=== PATIENT | female | born 1995 | race Caucasian/White ===

== ENCOUNTER 2018-08-21 00:30 | Emergency (ER) | payer OTHER ==
--- NOTE | 2018-08-21 00:44 | ER Report ---
History and Physical Time Seen By MD: 00:44 Hx. of Stated Complaint: PATIENT STATES SHE ATE A MARIJUANA EDIBLE GUMMY AROUND 2129, PATIENT STATE SHE FELT FINE AT FIRST BUT THEN STARTED FEELING THEN STARTED TO HAVE PAIN ALL OVER, WEAK FEELING, A "BURNING IN SPIN", FEELING DIZZY AND NAUSEATED. HPI/ROS CHIEF COMPLAINT: Not feeling well, possible bad marijuana edible consumption HISTORY OF PRESENT ILLNESS: This is a 22-year-old female. She is not feeling well after eating a marijuana edible. This was a gummy, eaten around 0 hours. She states she ate one. No other edible consumption. Denies any other substance abuse such as alcohol, tobacco, or other drugs. She is feeling dizzy. She is feeling nauseous. Also feeling a burning sensation throughout her body. Diffuse weakness. She has used marijuana in the past without any problems. Prior to this she was feeling fine and in her normal state of health without any problems. She feels a little short of breath. Denies chest pain. No abdominal pain. Normal bowel and bladder function today. Allergies: Coded Allergies: cat dander (Verified Allergy, Intermediate, CONGESTION/ITCHY, 08/21/18) dog dander (Verified Allergy, Intermediate, TICHY/CONGESTION, 08/21/18) Uncoded Allergies: HAY (Allergy, Intermediate, CONGESTION/ITCHY, 08/21/18) Home Meds No Active Prescriptions or Reported Meds Reviewed Nurses Notes: Yes Hx Substance Use Disorder: No Hx Alcohol Use: No Constitutional Vital Sign - Last 24 Hours 08/21/18 08/21/18 08/21/18 08/21/18 00:37 00:45 01:00 01:05 Temp 97.3 Pulse 125 107 92 82 Resp 24 17 19 15 B/P (MAP) 132/83 117/65 (82) Pulse Ox 98 96 96 96 O2 Delivery Room Air 08/21/18 08/21/18 08/21/18 08/21/18 01:20 01:30 01:35 01:50 Pulse 65 90 86 Resp 13 9 14 B/P (MAP) 120/74 (89) Pulse Ox 98 98 99 08/21/18 08/21/18 08/21/18 08/21/18 01:59 02:04 02:09 02:24 Pulse 61 53 51 57 Resp 14 13 13 12 Pulse Ox 97 98 98 97 08/21/18 08/21/18 08/21/18 08/21/18 02:30 02:39 03:00 03:05 Pulse 60 53 Resp 9 12 B/P (MAP) 112/73 (86) 107/72 (84) Pulse Ox 97 97 08/21/18 08/21/18 08/21/18 08/21/18 03:20 03:30 03:35 04:05 Pulse 62 73 ??? Resp 10 14 B/P (MAP) 120/71 (87) 111/62 (78) Pulse Ox 96 97 Physical Exam General Appearance: She is very groggy but alert and able answer questions. No acute distress. Eyes: Pupils are equal, round. No pallor, injection or icterus. Reactive to light. Extraocular movements intact. ENT: Mucous membranes are moist. Normal oral mucosa. Posterior oropharynx is normal. Neck: Supple and non tender. No lymphadenopathy. Respiratory: Lungs are clear to auscultation. Cardiovascular: Regular rate and rhythm. No murmurs, gallops or rubs. Normal capillary refill. No edema. Gastrointestinal: Abdomen is soft and non tender. Nondistended. Normal active bowel sounds. No costovertebral angle tenderness with percussion. Neurological: Alert and oriented x3. Cranial nerves II through XII show no acute deficits on my exam. No focal neurologic deficits in the extremities. Skin: Warm and dry. Musculoskeletal: Extremities are nontender. No tenderness in palpation of the cervical, thoracic and lumbar spine. DIFFERENTIAL DIAGNOSIS: After history and physical exam, differential diagnosis was considered for altered mental status, dizziness and weakness, likely due to consumption of the marijuana that he knows what else was in that. We'll look for other potential causes of this such as medical or metabolic as well. Medical Decision Making Data Points Result Diagram: 08/21/18 0053 08/21/18 0053 Laboratory Hematology Test 08/21/18 00:53 08/21/18 01:38 Red Blood Count 4.93 M/uL (4.17-5.56) Mean Corpuscular Volume 88.3 fL (80.0-96.0) Mean Corpuscular Hemoglobin 30.4 pg (26.0-33.0) Mean Corpuscular Hemoglobin Concent 34.4 g/dL (32.0-36.0) Red Cell Distribution Width 12.6 % (11.5-14.5) Mean Platelet Volume 8.5 fL (7.2-11.1) Neutrophils (%) (Auto) 42.1 % (39.4-72.5) Lymphocytes (%) (Auto) 50.2 % (17.6-49.6) Monocytes (%) (Auto) 5.4 % (4.1-12.4) Eosinophils (%) (Auto) 1.8 % (0.4-6.7) Basophils (%) (Auto) 0.5 % (0.3-1.4) Nucleated RBC Relative Count (auto) 0.0 /100WBC Neutrophils # (Auto) 4.0 K/uL (2.0-7.4) Lymphocytes # (Auto) 4.8 K/uL (1.3-3.6) Monocytes # (Auto) 0.5 K/uL (0.3-1.0) Eosinophils # (Auto) 0.2 K/uL (0.0-0.5) Basophils # (Auto) 0.0 K/uL (0.0-0.1) Nucleated RBC Absolute Count (auto) 0.00 K/uL Sodium Level 141 mmol/L (137-145) Potassium Level 3.2 mmol/L (3.5-5.0) Chloride Level 107 mmol/L (98-107) Carbon Dioxide Level 24 mmol/L (22-31) Blood Urea Nitrogen 16 mg/dl (7-18) Creatinine 0.90 mg/dl (0.52-1.04) Glomerular Filtration Rate Calc > 60.0 Random Glucose 121 mg/dl (75-110) Calcium Level 9.8 mg/dl (8.4-10.2) Total Bilirubin 0.3 mg/dl (0.2-1.3) Aspartate Amino Transf (AST/SGOT) 28 U/L (0-35) Alanine Aminotransferase (ALT/SGPT) 31 U/L (0-56) Alkaline Phosphatase 38 U/L (0-126) Troponin I < 0.012 ng/ml Total Protein 7.5 g/dl (6.3-8.2) Albumin 4.2 g/dl (3.5-5.0) Salicylates Level < 10 mg/L Salicylate Last Dose Date unk Acetaminophen Level < 10 ug/ml Serum Alcohol < 10 mg/dl Urine Color Yellow Urine Clarity Slightly-cloudy Urine pH 5.0 pH (4.8-9.5) Urine Specific [place] 1.014 Urine Protein Negative mg/dL (NEGATIVE) Urine Glucose (UA) Negative mg/dL (NEGATIVE) Urine Ketones Negative mg/dL (NEGATIVE) Urine Blood Negative (NEGATIVE) Urine Nitrite Negative (NEGATIVE) Urine Bilirubin Negative (NEGATIVE) Urine Urobilinogen Negative mg/dL (0.2-1.9) Urine Leukocyte Esterase Moderate (NEGATIVE) Urine RBC 1 /HPF (0-2/HPF) Urine WBC 9 /HPF (0-5/HPF) Urine Squamous Epithelial Cells Many /LPF (</=FEW) Urine Bacteria Few /HPF (NONE-FEW) Urine Mucus Few /HPF (NONE-FEW) Urine Opiates Screen Negative Urine Barbiturates Screen Negative Ur Tricyclic Antidepressants Screen Negative Urine Phencyclidine Screen Negative Urine Amphetamines Screen Negative Urine Benzodiazepines Screen Negative Urine Cocaine Screen Negative Urine Cannabinoids Screen Positive Chemistry Test 08/21/18 00:53 08/21/18 01:38 White Blood Count 9.5 k/uL (4.5-11.0) Red Blood Count 4.93 M/uL (4.17-5.56) Hemoglobin 15.0 g/dL (12.0-16.0) Hematocrit 43.6 % (34.0-47.0) Mean Corpuscular Volume 88.3 fL (80.0-96.0) Mean Corpuscular Hemoglobin 30.4 pg (26.0-33.0) Mean Corpuscular Hemoglobin Concent 34.4 g/dL (32.0-36.0) Red Cell Distribution Width 12.6 % (11.5-14.5) Platelet Count 331 K/uL (150-450) Mean Platelet Volume 8.5 fL (7.2-11.1) Neutrophils (%) (Auto) 42.1 % (39.4-72.5) Lymphocytes (%) (Auto) 50.2 % (17.6-49.6) Monocytes (%) (Auto) 5.4 % (4.1-12.4) Eosinophils (%) (Auto) 1.8 % (0.4-6.7) Basophils (%) (Auto) 0.5 % (0.3-1.4) Nucleated RBC Relative Count (auto) 0.0 /100WBC Neutrophils # (Auto) 4.0 K/uL (2.0-7.4) Lymphocytes # (Auto) 4.8 K/uL (1.3-3.6) Monocytes # (Auto) 0.5 K/uL (0.3-1.0) Eosinophils # (Auto) 0.2 K/uL (0.0-0.5) Basophils # (Auto) 0.0 K/uL (0.0-0.1) Nucleated RBC Absolute Count (auto) 0.00 K/uL Glomerular Filtration Rate Calc > 60.0 Calcium Level 9.8 mg/dl (8.4-10.2) Total Bilirubin 0.3 mg/dl (0.2-1.3) Aspartate Amino Transf (AST/SGOT) 28 U/L (0-35) Alanine Aminotransferase (ALT/SGPT) 31 U/L (0-56) Alkaline Phosphatase 38 U/L (0-126) Troponin I < 0.012 ng/ml Total Protein 7.5 g/dl (6.3-8.2) Albumin 4.2 g/dl (3.5-5.0) Salicylates Level < 10 mg/L Salicylate Last Dose Date unk Acetaminophen Level < 10 ug/ml Serum Alcohol < 10 mg/dl Urine Color Yellow Urine Clarity Slightly-cloudy Urine pH 5.0 pH (4.8-9.5) Urine Specific [place] 1.014 Urine Protein Negative mg/dL (NEGATIVE) Urine Glucose (UA) Negative mg/dL (NEGATIVE) Urine Ketones Negative mg/dL (NEGATIVE) Urine Blood Negative (NEGATIVE) Urine Nitrite Negative (NEGATIVE) Urine Bilirubin Negative (NEGATIVE) Urine Urobilinogen Negative mg/dL (0.2-1.9) Urine Leukocyte Esterase Moderate (NEGATIVE) Urine RBC 1 /HPF (0-2/HPF) Urine WBC 9 /HPF (0-5/HPF) Urine Squamous Epithelial Cells Many /LPF (</=FEW) Urine Bacteria Few /HPF (NONE-FEW) Urine Mucus Few /HPF (NONE-FEW) Urine Opiates Screen Negative Urine Barbiturates Screen Negative Ur Tricyclic Antidepressants Screen Negative Urine Phencyclidine Screen Negative Urine Amphetamines Screen Negative Urine Benzodiazepines Screen Negative Urine Cocaine Screen Negative Urine Cannabinoids Screen Positive Toxicology Test 08/21/18 00:53 08/21/18 01:38 Salicylates Level < 10 mg/L Salicylate Last Dose Date unk Acetaminophen Level < 10 ug/ml Serum Alcohol < 10 mg/dl Urine Opiates Screen Negative Urine Barbiturates Screen Negative Ur Tricyclic Antidepressants Screen Negative Urine Phencyclidine Screen Negative Urine Amphetamines Screen Negative Urine Benzodiazepines Screen Negative Urine Cocaine Screen Negative Urine Cannabinoids Screen Positive Urinalysis Test 08/21/18 01:38 Urine Color Yellow Urine Clarity Slightly-cloudy Urine pH 5.0 pH (4.8-9.5) Urine Specific [place] 1.014 Urine Protein Negative mg/dL (NEGATIVE) Urine Glucose (UA) Negative mg/dL (NEGATIVE) Urine Ketones Negative mg/dL (NEGATIVE) Urine Blood Negative (NEGATIVE) Urine Nitrite Negative (NEGATIVE) Urine Bilirubin Negative (NEGATIVE) Urine Urobilinogen Negative mg/dL (0.2-1.9) Urine Leukocyte Esterase Moderate (NEGATIVE) Urine RBC 1 /HPF (0-2/HPF) Urine WBC 9 /HPF (0-5/HPF) Urine Squamous Epithelial Cells Many /LPF (</=FEW) Urine Bacteria Few /HPF (NONE-FEW) Urine Mucus Few /HPF (NONE-FEW) EKG/Imaging EKG Interpretation 12 lead EKG: Rhythm: normal sinus rhythm, rate 96 [place]: normal QRS: Prolonged QT ST segments: normal Imaging AP CHEST 08/21/2018 12:45 AM. INDICATION: dizziness COMPARISON: None. FINDINGS: Lungs are well-expanded. There is no consolidation. No pleural effusion or pneumothorax. Heart size is normal. IMPRESSION: No acute abnormality. Report Dictated By: Chino Gomez MD at 08/21/2018 1:25 AM ED Course/Re-evaluation Clinical Indication for ER IV: Hydration, IV Access ED Course Labs show cannabis, but nothing else. Normal metabolic panel. She feels better after a liter of normal saline and Zofran. Decision to Disposition Date: Aug 21, 2018 Decision to Disposition Time: 02:59 Depart Departure Latest Vital Signs Vital Signs Date Time Temp Pulse Resp B/P (MAP) Pulse Ox O2 Delivery O2 Flow Rate FiO2 08/21/18 04:05 ??? 111/62 (78) 08/21/18 03:35 14 97 08/21/18 00:37 97.3 Room Air Impression: Primary Impression: Dizziness Additional Impression: Marijuana intoxication Condition: Improved Disposition: HOME OR SELF-CARE New Scripts No Active Prescriptions or Reported Meds Patient Instructions: Cannabis Abuse (ED) Problem Qualifiers Additional Impression: Marijuana intoxication Complication of substance-induced condition: with unspecified complication Qualified Codes: F12.929 - Cannabis use, unspecified with intoxication, unspecified MACARIO DUNN MD Aug 21, 2018 00:44
[2018-08-21] MEDS ORDERED: NS(*) 0.9% 1000 ML BAG 1,000 ML IV ONE (00:45)
[2018-08-21] MEDS ORDERED: ONDANSETRON 4 MG/2 ML VIAL IVP ONE (00:45)
[2018-08-21 01:17] LABS: PLATELET COUNT, AUTOMATED 331 K/uL (150-450)
--- NOTE | 2018-08-21 01:30 | RADIOLOGY IMAGING REPORT ---
FACILITY: [facility] PATIENT NAME: Robyn Combs : 1995 MR: [id number] V: [id number] EXAM DATE: ORDERING PHYSICIAN: MACARIO DUNN TECHNOLOGIST: Location: [facility] - [place] Patient: Robyn Combs : 1995 Visit/Account:[id number] Date of Sevice: 08/21/2018 AP CHEST 08/21/2018 12:45 AM. INDICATION: dizziness COMPARISON: None. FINDINGS: Lungs are well-expanded. There is no consolidation. No pleural effusion or pneumothorax. Heart size i s normal. IMPRESSION: No acute abnormality. Report Dictated By: Chino Gomez MD at 08/21/2018 1:25 AM Report E-Signed By: Chino Gomez MD at 08/21/2018 1:26 AM WSN:[id number]
--- NOTE | 2018-08-21 01:45 | EKG ---
FACILITY: [facility] PATIENT NAME: EDDI RABAGO : 1995 MR: [id number] V: [id number] EXAM DATE: ORDERING PHYSICIAN: MACARIO DUNN TECHNOLOGIST: GHISLAINE Hurley Reason : Blood Pressure : / mmHG Vent. Rate : 096 BPM Atrial Rate : 096 BPM P-R Int : 176 ms QRS Dur : 088 ms QT Int : 378 ms P-R-T Axes : 061 079 033 degrees QTc Int : 477 ms Normal sinus rhythm Prolonged QT Abnormal ECG No previous ECGs available Confirmed by Wilfrido Duong ([id number] on 08/21/2018 7:17:06 AM Referred By: Confirmed By:Wilfrido Barahona
[2018-08-21 04:05] VITALS: BP 111/62
== END 2018-08-21 04:11 | disposition home or self-care (01) ==
LOC: ER 01:42
DX: R42 Dizziness and giddiness (principal); F12.929 Cannabis use, unspecified with intoxication, unspecified
CPT/HCPCS: 71045; 80305; 80320; 80329; 81001; 84484; 85025; 93005; 96374; 99284; J2405; J7030; 82040; 82247; 82310; 82374; 82435; 82565; 82947; 84075; 84132; 84155; 84295; 84450; 84460; 84520